=== PATIENT | male | born 1950 | race Caucasian/White ===

== ENCOUNTER 2025-08-23 08:27 | Emergency (ER) | payer OTHER, MEDICAID ==
[~2025-08-23] VITALS: Ht 182.8 cm; Wt 131.1 kg
[2025-08-23 08:32] VITALS: BP 119/53
[2025-08-23] MEDS ORDERED: FUROSEMIDE40 MG PO (08:35)
[2025-08-23] MEDS ORDERED: TOUJEO MAX300 UNIT/1 SQ (08:35)
[2025-08-23] MEDS ORDERED: LEVOTHYROXINE175 MCG PO (08:35)
[2025-08-23] MEDS ORDERED: ATENOLOL-CHLOR1 EAC1 PO (08:35)
[2025-08-23] MEDS ORDERED: ATORVASTATIN CA40 M1 PO (08:36)
[2025-08-23] MEDS ORDERED: OZEMPIC2 MG/0.71 SQ (08:39)
[2025-08-23] MEDS ORDERED: IBU400 M1 PO (10:21)
== END 2025-08-23 12:32 | disposition home or self-care (01) ==
LOC: ED 08:27
DX: S20.222A Contusion of left back wall of thorax, initial encounter (principal); Z79.899 Other long term (current) drug therapy; Z90.89 Acquired absence of other organs; Z98.890 Other specified postprocedural states; W18.11XA Fall from or off toilet without subsequent striking against object, initial encounter; Y93.89 Activity, other specified; Y92.098 Other place in other non-institutional residence as the place of occurrence of the external cause; Y99.8 Other external cause status